=== PATIENT | female | born 1990 | race Caucasian/White ===

== ENCOUNTER 2017-05-08 18:32 | Emergency (ER) | payer MEDICAID ==
[~2017-05-08] VITALS: Ht 152.4 cm; Wt 56.7 kg
[2017-05-08 20:02] VITALS: BP 107/64
[2017-05-08 20:05] LABS: BASOPHILS # (AUTO) 0.04 x10^3/uL (0-0.1); BASOPHILS % (AUTO) 1 % (0-1); EOSINOPHILS # (AUTO) 0.12 x10^3/uL (0-0.4); EOSINOPHILS % (AUTO) 2 % (1-7); LYMPHOCYTES # (AUTO) 3.15 x10^3/uL (1-3.4); LYMPHOCYTES % (AUTO) 42 % (22-44); MD NO; MEAN CORPUSCULAR HEMOGLOBIN 30.1 pg (27.0-34.8); MEAN CORPUSCULAR HGB CONC 33.7 g/dL (32.4-35.8); MEAN CORPUSCULAR VOLUME 89.2 fL (80-100); MEAN PLATELET VOLUME 7.4 fL (7.4-10.4); MONOCYTES % (AUTO) 8 % (2-9); NEUTROPHILS # (AUTO) 3.67 x10^3/uL (1.8-6.8); NEUTROPHILS % (AUTO) 48 % (42-75); PLATELET COUNT 325 x10^3/uL (130-400); RED BLOOD COUNT 4.82 x10^6/uL (3.82-5.3); RED CELL DISTRIBUTION WIDTH 14.7 % (9.6-15.2)
== END 2017-05-08 20:47 | disposition home or self-care (01) ==
LOC: ED 20:45
DX: O03.4 Incomplete spontaneous abortion without complication (principal)
CPT/HCPCS: 36415; 84702; 85025; 99284

== ENCOUNTER 2018-08-06 18:05 | Emergency (ER) | payer MEDICAID ==
[~2018-08-06] VITALS: Ht 165.1 cm; Wt 60.5 kg
[2018-08-06 18:10] VITALS: BP 111/76
--- NOTE | 2018-08-06 18:16 | NUR ---
PT STATES SHE TOOK AN ABX, UNSURE OF THE NAME APPROXIMATELY AT 1500, AND 800 MG IBU AT 1200
--- NOTE | 2018-08-06 19:09 | NUR ---
DC EDUCATION PROVIDED, PT DEMONSTRATES UNDERSTANDING.PT AMBULATED STEADILY TO DC WITH RN
== END 2018-08-06 19:11 | disposition home or self-care (01) ==
LOC: ED 19:07
DX: K04.7 Periapical abscess without sinus (principal)
CPT/HCPCS: 41800; 99283

== ENCOUNTER 2018-08-07 02:57 | Emergency (ER) | payer MEDICAID ==
[~2018-08-07] VITALS: Ht 154.9 cm; Wt 60.7 kg
[2018-08-07 02:59] VITALS: BP 105/76
[2018-08-07] MEDS ORDERED: LIDOCAINE-MPF 1%, 5ML ONE (03:18)
[2018-08-07] MEDS ORDERED: PROMETHAZINE 25 MG/ML, 1ML ONE (03:57)
[2018-08-07] MEDS ORDERED: KETOROLAC 60 MG/2 ML ONE (03:57)
[2018-08-07] MEDS ORDERED: HYDROmorphone 2 MG/ML, 1ML ONE (03:57)
[2018-08-07] MEDS ORDERED: PROMETHAZINE 25 MG/ML, 1ML IM ONE (04:00)
[2018-08-07] MEDS ORDERED: KETOROLAC 30 MG/1 ML IM ONE (04:00)
[2018-08-07] MEDS ORDERED: LIDOCAINE-MPF 1%, 5ML INFIL ONE (04:00)
[2018-08-07] MEDS ORDERED: HYDROmorphone 2 MG/ML, 1ML IM ONE (04:00)
== END 2018-08-07 04:14 | disposition home or self-care (01) ==
LOC: ED 04:12
DX: K04.6 Periapical abscess with sinus (principal); F17.200 Nicotine dependence, unspecified, uncomplicated
CPT/HCPCS: 41800; 96372; 99283; J1170; J1885; J2550

== ENCOUNTER 2019-10-25 21:59 | Emergency (ER) | payer MEDICAID ==
[~2019-10-25] VITALS: Ht 152.4 cm; Wt 83.6 kg
--- NOTE | 2019-10-25 22:20 | NUR ---
ASSESSMENT MADE. CHART UP FOR MD TO SEE.
[2019-10-25] MEDS ORDERED: FAMOTIDINE 20 MG TABLET ONE (22:21)
[2019-10-25] MEDS ORDERED: DIPHENHYDRAMINE 25 MG CAPSULE ONE (22:22)
--- NOTE | 2019-10-25 22:26 | NUR ---
SEEN BY PA. MEDICATED. FOR OBSERVATION
[2019-10-25] MEDS ORDERED: FAMOTIDINE 20 MG TABLET PO ONE (22:30)
[2019-10-25] MEDS ORDERED: DIPHENHYDRAMINE 25 MG CAPSULE PO ONE (22:30)
--- NOTE | 2019-10-25 22:51 | NUR ---
patient states feeling much better. itching gone. airway patent. discharged with prescriptions and instruction. verbalized understanding.
[2019-10-25 22:53] VITALS: BP 109/61
== END 2019-10-25 22:55 | disposition home or self-care (01) ==
LOC: ED 22:49
DX: T78.40XA Allergy, unspecified, initial encounter (principal); L50.0 Allergic urticaria; F17.210 Nicotine dependence, cigarettes, uncomplicated; Z72.9 Problem related to lifestyle, unspecified; X58.XXXA Exposure to other specified factors, initial encounter
CPT/HCPCS: 99284; 99406; J7512; Q0163

== ENCOUNTER 2020-11-17 06:21 | Emergency (ER) | payer MEDICAID ==
[~2020-11-17] VITALS: Ht 152.4 cm; Wt 79.0 kg
[2020-11-17 06:23] VITALS: BP 130/67
[2020-11-17] MEDS ORDERED: DIPH,PERTUSS(ACELL),TET VAC/PF 0.5 ML IM-VACC ONE ×2 (07:00→07:02)
--- NOTE | 2020-11-17 07:04 | NUR ---
PT SITTING UP IN BED, ARM ELEVATED AND SMALL LAC EVIDENT ON LT ARM. NO BLEEDING AT THIS TIME. RESPIRATIONS EVEN AND UNLABORED ON RA. SIDE RAILS UP. FRIEND AT BEDSIDE.
[2020-11-17] MEDS ORDERED: NEOSPORIN OINT. PKT 1 PACKET ONE (07:12)
== END 2020-11-17 08:17 | disposition home or self-care (01) ==
LOC: ED 06:51
DX: S61.512A Laceration without foreign body of left wrist, initial encounter (principal); W26.9XXA Contact with unspecified sharp object(s), initial encounter; Y93.89 Activity, other specified; Y92.89 Other specified places as the place of occurrence of the external cause; Y99.0 Civilian activity done for income or pay; F17.200 Nicotine dependence, unspecified, uncomplicated
CPT/HCPCS: 90471; 90715; 99283